=== PATIENT | female | born 1975 | race Caucasian/White ===

== ENCOUNTER → 2016-09-06 | Outpatient (CLI) | payer OTHER ==
[~2016-09-06] MED LIST: ADVAIR 250-501 EACH IH; ALBUTEROL0.63 MG/3 IH; ALBUTEROL17 GM INH; LOVENOX40 MG/0.4 INJ; PERCOCET5/325 PO; PRILOSEC20 MG PO
--- NOTE | ~2016-09-06 | CT57 ---
[facility] A Service of [facility] RADIOLOGY TEXT RESULTS PATIENT: CLEMENTE MUNOZ LOCATION: [facility] : 77 UNIT #: [id number] AGE: [address]: Mireya Anderson SEX: F ORDER DR: [id number] [facility] [address] [place], [place] [address] [id number] O MR#: [id number] Acc #: [id number] NAME: CLEMENTE MUNOZ : 1975 SEX: F STUDY DATE/TIME: 09/06/2016 08:52 UNIT: [facility] ROOM: STUDY DESCRIPTION: CT Chest Wo Cont Attending Physician: Mireya Anderson A.P.R.N. Referring Physician: Mireya Anderson A.P.R.N. Ordering Physician: Mireya Anderson A.P.R.N. Primary Care Physician: Lorna Hoffman A.P.R.N. MEDICAL IMAGING REPORT This report is preliminary unless electronic signature is present EXAM CT chest without contrast 09/06/2016, 08:52 hours. HISTORY Follow up lung nodules seen on outside CT abdomen and pelvis. No current chest complaints. History of asthma. COMPARISON CT abdomen [facility] 12/17/2015 12:34 hours TECHNIQUE Helical noncontrasted images were obtained from the lung bases through the pubic symphysis. Sagittal and coronal reconstructions were performed. Total exam DLP 2049 mGy-cm. This CT exam was performed with one or more of the following radiation dose reduction techniques: automatic exposure control, adjustment of mA and/or kV according to patient size, and iterative reconstruction. FINDINGS Images through the thoracic inlet demonstrate no thyroid mass or adenopathy. Images through the chest demonstrate normal aortic size. Pulmonary arteries, cardiac chambers and pericardium are normal. The esophagus is normal. There is no lymphadenopathy. Lung window images demonstrate linear atelectasis or scar in the right middle lobe and lingula. There is a densely calcified nodule at the right posterior lung base measuring 1.7 cm and 300 Hounsfield units consistent with a benign granuloma. This is unchanged from prior exam. There is a 3 mm noncalcified nodule lateral left lower lobe on image 104 which is unchanged. There is additional 3 mm nodule at the extreme lateral left STS. [facility] A Service of [facility] RADIOLOGY TEXT RESULTS PATIENT: CLEMENTE MUNOZ LOCATION: [facility] : 77 UNIT #: [id number] AGE: [address]: Mireya Anderson SEX: F ORDER DR: lung base on image 127 also unchanged. There is no pleural fluid. Limited views through the upper abdomen demonstrate gallstones. The adrenal glands are normal. IMPRESSION 1. There is a densely calcified granuloma at the right lung base measuring 1.[address] abdomen 12/17/2015. This is benign. There are 2 very tiny 3 mm nodules in the left lower lobe unchanged from 12/17/2015 likely representing noncalcified granulomata. Suggest followup noncontrasted CT in 6-12 months to reassess. 2. There is linear scarring in the right middle lobe and lingula. 3. No adenopathy or effusions. Findings are most likely benign. Dictated by... Liliya Matos M.D. THIS IS AN ELECTRONICALLY VERIFIED REPORT Liliya Matos M.D. at 09/06/2016 6:59 PM Lucas TD: 09/06/2016 17:14 JOB #: [id number] MEDICAL IMAGING REPORT COPY
== END | disposition home or self-care (01) ==
LOC: CCAT 08:25
DX: R91.1 Solitary pulmonary nodule (principal); J84.10 Pulmonary fibrosis, unspecified
CPT/HCPCS: 71250